=== PATIENT | female | born 1985 | race Caucasian/White ===

== ENCOUNTER 2016-04-13 14:31 | Outpatient (CLI) | payer SELFPAY ==
[~2016-04-13] VITALS: Ht 154.9 cm; Wt 62.9 kg
[~2016-04-13 14:31] MED LIST: ACET500C5 PO; CEPH-443 PO; IBUP-1542 PO
[2016-04-13 14:43] VITALS: BP 120/57; PULSE 84; RESP 17
[2016-04-13] MEDS ORDERED: PRENAT PO (14:46)
[2016-04-13] MEDS ORDERED: FOL8 PO (14:46)
[2016-04-13 14:57] LABS: URINE BLOOD (Dip) POC Trace-intact (NEGATIVE)
[2016-04-13 15:36] LABS: ADD UMIC YES; URINE BILIRUBIN (Dip) NEGATIVE (NEGATIVE); URINE BLOOD (Dip) NEGATIVE (NEGATIVE); URINE COLOR LT. YELLOW (YELLOW); URINE GLUCOSE (Dip) NEGATIVE (NEGATIVE); URINE KETONES (Dip) TRACE (NEGATIVE); URINE LEUKOCYTE ESTERASE (Dip) 2+ (NEGATIVE); URINE NITRITE (Dip) NEGATIVE (NEGATIVE); URINE TOTAL PROTEIN (Dip) TRACE (NEGATIVE); URINE UROBILINOGEN (Dip) 1.0 E.U./dL (0.1-1.0)
[2016-04-13 16:15] LABS: URINE RBCS 0-2 /HPF (0)
[2016-04-13 16:16] LABS: BACTERIA,URINE FEW; SQUAMOUS EPITHELIAL CELL,UR FEW
--- NOTE | 2016-04-13 16:16 | RADRPT ---
PROCEDURE: US cervix CLINICAL INDICATION: labor TECHNIQUE: Limited OB ultrasound was performed to evaluate the cervix COMPARISON: No prior studies are available for comparison. FINDINGS: There is a single live intrauterine . Normal cardiac activity is identified at a rat e of 156 beats per minute. presentation is transverse head to the maternal left. This is new is anterior grade 0. There is no evidence of placenta previa or abruption. The cervix is closed and measures 3.6 cm. There is no evidence of funneling or dilatation. IMPRESSION: The cervix is closed and measures 3.6 cm in length RPTAT: HH .Ricky Basilio MD, MD Date Time Electronically viewed and signed by .Ricky Basilio MD, on 04/13/2016 16:16 .W/
--- NOTE | 2016-04-13 16:30 | QN ---
Documentation Comment co of uti sypmtoms vss exam wnl ap iup 32 weeks uti false laboe macrobd dc home ERNIE LEDEZMA MD Apr 13, 2016 16:30
--- NOTE | 2016-04-13 16:45 | TRIAGE ---
OB Triage Datetime Report Generated by CPN: 04/13/2016 16:44 Datetime: 04/13/2016 16:29 Labor Evaluation Frequency: 0 Pattern: Normal: <= 5 Contractions in 10 Minutes Resting Tone [place]: Relaxed Datetime: 04/13/2016 15:12 Labor Evaluation Frequency: 0 Monitor Mode: External Pattern: Normal: <= 5 Contractions in 10 Minutes Resting Tone [place]: Relaxed Heart Rate FHR Baseline Rate: 135 FHR Baseline Changes: No Baseline Change Variability: Moderate 6-25 bpm Accelerations: 15X15 Decelerations: None Category: Category I Datetime: 04/13/2016 14:39 Time of Arrival: 04/13/2016 14:20 EGA: 31.0 Arrived By: Wheelchair Arrived From: Emergency Dept Chief Complaint: LOWER ABDOMINAL PRESSURE AND CTX FROM 1400 Movement: Present Contractions: Occasional Time Contractions Began: 04/13/2016 14:00 Rupture of Membranes: Denies Vaginal Bleeding: None Vaginal Discharge: Denies Recent Sexual Intercouse: Denies Abdominal Trauma: Not Applicable Patient Complaints: Contractions; Other Additional Patient Complaints: PT REPORTS PAIN WITH URINATING; URINE GARRETT AND CLOUDY. Time Provider Notified: 04/13/2016 14:58 Provider Notified: DR. LEDEZMA Initial Plan: EFM x2, UA, CERVICAL LENGTH Datetime: 04/13/2016 14:38 Stage of : OB Triage Assessment Type: Triage Maternal Assessment Level of Consciousness: Fully Conscious Headache: Denies Blurred Vision: No Respiratory Effort: Unlabored; Regular Rhythm; Equal Expansion Breath Sounds, Left: Clear and Equal Breath Sounds, Right: Clear and Equal Nausea/Vomiting: Denies RUQ Epigastric Pain: Denies Lower Extremities Edema: None Degree: None Upper Extremities Edema: None Degree: None Facial Edema: None Fall Risk Assessment History of Falling: (0) No Secondary Diagnosis: (0) No Ambulatory Aid: (0) Bedrest/Nurse Assist IV Therapy: (0) No Gait: (0) Normal/Bedrest/Immobile Mental Status: (0) Oriented to Own Ability Fall Score: 0 Fall Risk Score Definition: No Risk: No action required
== END 2016-04-13 16:40 | disposition home or self-care (01) ==
LOC: OBT 14:31 → L-D 14:32 → OBT 16:40
PROVIDERS: ATTEND Obstetrics & Gynecology
DX: O23.43 Unspecified infection of urinary tract in pregnancy, third trimester (principal); O47.03 False labor before 37 completed weeks of gestation, third trimester; Z3A.32 32 weeks gestation of pregnancy
CPT/HCPCS: 76817; 81001; 87086; G0463; 81003

== ENCOUNTER 2018-02-16 03:15 | Emergency (ER) | payer SELFPAY ==
[~2018-02-16] VITALS: Wt 62.4 kg
[~2018-02-16 03:15] MED LIST changes: -ACET500C5 PO; -CEPH-443 PO; +FOL8 PO; -IBUP-1542 PO; +PRENAT PO
[2018-02-16] MEDS ORDERED: ONDANSETRON (ODT) 4 MG TAB ODT STA (03:42)
[2018-02-16] MEDS ORDERED: KETOROLAC 30 MG INJ IM STA (03:42)
[2018-02-16] MEDS ORDERED: BISM-34 PO (04:48)
[2018-02-16] MEDS ORDERED: TYL500 PO (04:48)
[2018-02-16] MEDS ORDERED: ONDA4TAB14 PO (04:48)
[2018-02-16] MEDS ORDERED: D-ME118S24 PO (04:48)
[2018-02-16 04:56] VITALS: PULSE 71; RESP 20
--- NOTE | 2018-02-16 05:16 | ERD ---
ER Documentation Chief Complaint Chief Complaint AP, COUGH, VOMIT X'S 2 DAYS HPI 32-year-old female presents for vomiting and diarrhea, abdominal pain times 5 days. States symptoms have been getting worse for the past 2 days. She d escribes the diarrhea as watery. There is no bright red blood or dark stools noted. She states that they have abdominal pain is diffuse. She rates the pain 6 out of 10. She also admits to some cough that she states is nonproductive. Denies fevers or chills. Denies chest pain or shortness of breath. ROS All systems reviewed and are negative except as per history of present illness. Medications Home Meds Active Scripts Bismuth Subsalicylate* (Bismuth Subsalicylate*) 262 Mg/15 Ml Oral.susp, 15 ML PO Q6 PRN for DIARRHEA, #1 BOTTLE Prov:SHERICE TAYLOR 02/16/18 Ondansetron (Ondansetron Odt) 4 Mg Tab.rapdis, 4 MG PO Q6H PRN for NAUSEA AND/OR VOMITING, #15 TAB Prov:SHERICE TAYLOR 02/16/18 Acetaminophen* (Tylenol*) 500 Mg Tab, 500 MG PO Q4H PRN for MILD PAIN LEVEL 1-3, #30 TAB Prov:SHERICE TAYLOR 02/16/18 D-Methorphan Hb/P-Epd HCl/Bpm (Wgwzshivvr-Vkrcgryjggh-Cm Syr) 118 Ml Syrup, 5 ML PO Q4H PRN for COUGH, #1 BOTTLE Prov:SHERICE TAYLOR DO 02/16/18 Reported Medications Folic Acid* (Folic Acid*) 0.8 Mg Tablet, 0.8 MG PO DAILY, TAB 04/13/16 Multivit/Min/Fol Ac/Iron/Pren* ( S*) 1 Tab Tab, 1 TAB PO DAILY, TAB 04/13/16 Allergies Allergies: Coded Allergies: No Known Allergy (Unverified , 03/17/15) PMhx/Soc History of Surgery: Yes ( X 4) Anesthesia Reaction: No Hx Neurological Disorder: No Hx Respiratory Disorders: No Hx Cardiac Disorders: No Hx Psychiatric Problems: No Hx Miscellaneous Medical Probl: No Hx Alcohol Use: No Hx Substance Use: No Hx Tobacco Use: No Smoking Status: Never smoker Physical Exam Vitals Vital Signs Date Temp Pulse Resp B/P (MAP) Pulse Ox O2 O2 Flow FiO2 Time Delivery Rate 02/16/18 98.8 71 20 98 Room Air 04:56 02/16/18 97.1 73 18 116/66 98 03:17 (83) Physical Exam Const: No acute distress Head: Atraumatic Eyes: Normal Conjunctiva ENT: Normal External Ears, Nose and Mouth. Neck: Full range of motion. No meningismus. Resp: Clear to auscultation bilaterally Cardio: Regular rate and rhythm, no murmurs Abd: Soft, mild diffuse tender to palpation, non distended. Normal bowel sounds, no McBurney's point tenderness, no Montalvo sign, no rebound or guarding noted. Skin: No petechiae or rashes Back: No midline or flank tenderness Ext: No cyanosis, or edema Neur: Awake and alert Psych: Normal Mood and Affect Result Diagram: 02/16/180 02/16/18399 Results 24 hrs Laboratory Tests Test 02/16/18 04:00 02/16/18 04:12 White Blood Count 6.4 10^3/ul Red Blood Count 3.99 10^6/ul Hemoglobin 11.8 g/dl Hematocrit 36.1 % Mean Corpuscular Volume 90.5 fl Mean Corpuscular Hemoglobin 29.6 pg Mean Corpuscular Hemoglobin Concent 32.7 g/dl Red Cell Distribution Width 13.3 % Platelet Count 302 10^3/UL Mean Platelet Volume 10.5 fl Immature Granulocytes % 0.500 % Neutrophils % 48.6 % Lymphocytes % 37.1 % Monocytes % 8.8 % Eosinophils % 4.5 % Basophils % 0.5 % Nucleated Red Blood Cells % 0.0 /100WBC Immature Granulocytes # 0.030 10^3/ul Neutrophils # 3.1 10^3/ul Lymphocytes # 2.4 10^3/ul Monocytes # 0.6 10^3/ul Eosinophils # 0.3 10^3/ul Basophils # 0.0 10^3/ul Nucleated Red Blood Cells # 0.0 10^3/ul Urine Color YELLOW Urine Clarity SLIGHTLY CLOUDY Urine pH 5.0 Urine Specific [place] 1.023 Urine Ketones 1+ mg/dL Urine Nitrite POSITIVE mg/dL Urine Bilirubin NEGATIVE mg/dL Urine Urobilinogen 1+ mg/dL Urine Leukocyte Esterase TRACE Damaso/ul Urine Microscopic RBC 12 /HPF Urine Microscopic WBC 3 /HPF Urine Squamous Epithelial Cells FEW /HPF Urine Bacteria FEW /HPF Urine Mucus FEW /HPF Urine Hemoglobin 2+ mg/dL Urine Glucose NEGATIVE mg/dL Urine Total Protein 1+ mg/dl Sodium Level 140 mmol/L Potassium Level 3.6 mmol/L Chloride Level 104 mmol/L Carbon Dioxide Level 28 mmol/L Anion Gap 8 Blood Urea Nitrogen 11 mg/dl Creatinine 0.52 mg/dl Est Glomerular Filtrat Rate mL/min > 60 mL/min Glucose Level 102 mg/dl Calcium Level 9.0 mg/dl Total Bilirubin 1.0 mg/dl Direct Bilirubin 0.00 mg/dl Indirect Bilirubin 1.0 mg/dl Aspartate Amino Transf (AST/SGOT) 23 IU/L Alanine Aminotransferase (ALT/SGPT) 24 IU/L Alkaline Phosphatase 114 IU/L Total Protein 7.7 g/dl Albumin 4.2 g/dl Globulin 3.50 g/dl Albumin/Globulin Ratio 1.20 Lipase 42 U/L POC Beta HCG, Qualitative NEGATIVE Current Medications Medications Dose Sig/Haley Start Time Status Last (Trade) Ordered Route PRN Stop Time Admin Dose Reason Admin Ketorolac 30 mg ONCE STAT 02/16/18 DC 02/16/18 Tromethamine IM 03:42 02/16/18 04:15 (Toradol) 03:43 Ondansetron 4 mg ONCE STAT 02/16/18 DC 02/16/18 HCl (Zofran ODT 03:42 02/16/18 04:05 Odt) 03:43 Procedures/MDM Medical Decision Making: Differential diagnosis includes but not limited to acute gastroenteritis, appendicitis, cholecystitis, pancreatitis. Patient appeared well on physical exam. Nontoxic appearing. There was mild diffuse tenderness to palpation. Low suspicion for surgical abdomen. Labs: CBC showed mild anemia, no elevated WBC to suggest infection CMP showed no electrolyte abnormalities, there was normal kidney and liver function Lipase was normal Urine was negative UA was negative for infection, there is a large amount of RBCs were patient is currently on her menstrual period Patient likely has acute gastroenteritis likely viral., ED course: Patient was given Zofran and Toradol. Symptoms improved with treatment. Prescription(s): Patient given prescription for bismuth, Zofran, Tylenol, Bromfed. Patient advised to follow up with PCP in 1-2 days. Patient advised to return to ED for new or worsening symptoms. Patient stable on discharge from the ED. Disclaimer: Inadvertent spelling and grammatical errors are likely due to EHR/dictation software use and do not reflect on the overall quality of patient care. Also, please note that the electronic time recorded on this note does not necessarily reflect the actual time of the patient encounter. Departure Diagnosis: Primary Impression: Viral gastroenteritis Additional Impression: Cough Condition: Fair Patient Instructions: Gastroenteritis, Viral (6Y-Adult) Referrals: [facility] YOU HAVE RECEIVED A MEDICAL SCREENING EXAM AND THE RESULTS INDICATE THAT YOU DO NOT HAVE A CONDITION THAT REQUIRES URGENT TREATMENT IN THE EMERGENCY DEPARTMENT. FURTHER EVALUATION AND TREATMENT OF YOUR CONDITION CAN WAIT UNTIL YOU ARE SEEN IN YOUR DOCTORS OFFICE WITHIN THE NEXT 1-2 DAYS. IT IS YOUR RESPONSIBILITY TO MAKE AN APPOINTMENT FOR FOLOW-UP CARE. IF YOU HAVE A PRIMARY DOCTOR --you should call your primary doctor and schedule an appointment IF YOU DO NOT HAVE A PRIMARY DOCTOR YOU CAN CALL OUR PHYSICIAN REFERRAL HOTLINE AT IF YOU CAN NOT AFFORD TO SEE A PHYSICIAN YOU CAN CHOSE FROM THE FOLLOWING [facility] [address] [facility] [address] [facility] [facility] [address] [facility] [address] [facility] [address] [facility]. [facility]. [address] Additional Instructions: Llame al doctor MAANA y monalisa anjali MALIK PARA DENTRO DE 1-2 MALHOTRA.Dgale a la secretaria que nosotros le instruimos hacer esta malik.Avise o llame si morley condicin se empeora antes de la malik. Regresa aqui si peor o no mejor. SHERICE TAYLOR DO Feb 16, 2018 05:16
== END 2018-02-16 04:55 | disposition home or self-care (01) ==
LOC: FTE 03:15
DX: A08.4 Viral intestinal infection, unspecified (principal); R05 Cough
CPT/HCPCS: 36415; 80053; 81001; 81025; 83690; 85025; 96372; 99284; J1885

== ENCOUNTER 2018-07-02 13:47 | Emergency (ER) | payer MEDICAID ==
[~2018-07-02] VITALS: Ht 167.6 cm; Wt 64.7 kg
[~2018-07-02 13:47] MED LIST changes: +BISM-34 PO; +CYCL10TA7 PO; +D-ME118S24 PO; +IBUP-1542 PO; +ONDA4TAB14 PO; +TYL500 PO
[2018-07-02 13:55] VITALS: Ht 167.6 cm; Wt 64.7 kg
--- NOTE | 2018-07-02 15:06 | ERD ---
ER Documentation Chief Complaint Chief Complaint Complains of dizzines, and headache with vomiting x 4 days HPI 32-year-old female, presents to the emergency department, complaining of 4 days with dizziness, headache and vomiting. The patient describes the sensation as things spinning around. Symptoms are worsened by sudden changes in position or rapid rotation of the head. ROS All systems reviewed and are negative except as per history of present illness. Medications Home Meds Active Scripts Ondansetron Hcl* (Zofran*) 4 Mg Tablet, 4 MG PO Q8H PRN for NAUSEA AND/OR VOM ITING, #12 TAB Prov:SAMEER HARRELL MD 07/02/18 Meclizine Hcl* (Antivert*) 12.5 Mg Tab, 12.5 MG PO Q6H PRN for DIZZINESS, #20 TAB Prov:SAMEER HARRELL MD 07/02/18 Cyclobenzaprine Hcl* (Cyclobenzaprine Hcl*) 10 Mg Tablet, 10 MG PO TID PRN for MUSCLE SPASMS, #20 TAB Prov:AMBROSE HARRIS 03/07/18 Ibuprofen* (Motrin*) 600 Mg Tab, 600 MG PO Q6H PRN for PAIN AND OR ELEVATED TEMP, #30 TAB Prov:AMBROSE HARRIS 03/07/18 Bismuth Subsalicylate* (Bismuth Subsalicylate*) 262 Mg/15 Ml Oral.susp, 15 ML PO Q6 PRN for DIARRHEA, #1 BOTTLE Prov:SHERICE TAYLOR DO 02/16/18 Ondansetron (Ondansetron Odt) 4 Mg Tab.rapdis, 4 MG PO Q6H PRN for NAUSEA AND/OR VOMITING, #15 TAB Prov:SHERICE TAYLOR DO 02/16/18 Acetaminophen* (Tylenol*) 500 Mg Tab, 500 MG PO Q4H PRN for MILD PAIN LEVEL 1-3, #30 TAB Prov:SHERICE TAYLOR DO 02/16/18 D-Methorphan Hb/P-Epd HCl/Bpm (Nlcsjoprpu-Vbeontutwke-Dg Syr) 118 Ml Syrup, 5 ML PO Q4H PRN for COUGH, #1 BOTTLE Prov:SHERICE TAYLOR DO 02/16/18 Reported Medications Folic Acid* (Folic Acid*) 0.8 Mg Tablet, 0.8 MG PO DAILY, TAB 04/13/16 Multivit/Min/Fol Ac/Iron/Pren* ( S*) 1 Tab Tab, 1 TAB PO DAILY, TAB 04/13/16 Allergies Allergies: Coded Allergies: No Known Allergy (Unverified , 03/17/15) PMhx/Soc History of Surgery: Yes ( X 4) Anesthesia Reaction: No Hx Neurological Disorder: No Hx Respiratory Disorders: No Hx Cardiac Disorders: No Hx Psychiatric Problems: No Hx Miscellaneous Medical Probl: Yes (pre-DM) Hx Alcohol Use: No Hx Substance Use: No Hx Tobacco Use: No Smoking Status: Never smoker FmHx Family History: No diabetes, No coronary disease Physical Exam Vitals Vital Signs Date Temp Pulse Resp B/P (MAP) Pulse Ox O2 O2 Flow FiO2 Time Delivery Rate 07/02/18 99.0 72 20 116/72 97 13:55 (87) Physical Exam Patient is in no acute distress, vital signs stable. Alert and fully oriented. HEENT: PERRLA, EOMI, Sclera and conjunctiva appear normal, Canals clear, t ympanic membranes WNL. THROAT: Normal oropharynx. NECK: Supple, No lymphadenopathy. Full ROM without pain or tenderness. HEART: RRR, no rubs, murmurs, clicks or gallops. LUNGS: Clear to auscultation. ABDOMEN: Soft, non-tender without masses or hepatosplenomegaly. EXTREMITIES: No edema bilaterally. BACK: Full ROM, no deformity, normal back exam NEURO: Cranial nerves grossly intact, no motor or sensory deficit. Mild horizontal nystagmus while the patient was looking straight ahead with mildly a bnormal head impulse test. Result Diagram: 07/02/18 1536 07/02/18 1536 Results 24 hrs Laboratory Tests Test 07/02/18 15:36 07/02/18 15:39 07/02/18 15:40 White Blood Count 7.1 10^3/ul Red Blood Count 4.33 10^6/ul Hemoglobin 12.8 g/dl Hematocrit 39.4 % Mean Corpuscular Volume 91.0 fl Mean Corpuscular Hemoglobin 29.6 pg Mean Corpuscular 32.5 g/dl Hemoglobin Concent Red Cell Distribution Width 13.6 % Platelet Count 289 10^3/UL Mean Platelet Volume 10.1 fl Immature Granulocytes % 0.100 % Neutrophils % 49.1 % Lymphocytes % 41.1 % Monocytes % 7.9 % Eosinophils % 1.5 % Basophils % 0.3 % Nucleated Red Blood Cells % 0.0 /100WBC Immature Granulocytes # 0.010 10^3/ul Neutrophils # 3.5 10^3/ul Lymphocytes # 2.9 10^3/ul Monocytes # 0.6 10^3/ul Eosinophils # 0.1 10^3/ul Basophils # 0.0 10^3/ul Nucleated Red Blood Cells # 0.0 10^3/ul Sodium Level 141 mmol/L Potassium Level 3.9 mmol/L Chloride Level 106 mmol/L Carbon Dioxide Level 26 mmol/L Anion Gap 9 Blood Urea Nitrogen 19 mg/dl Creatinine 0.72 mg/dl Est Glomerular Filtrat Rate mL/min > 60 mL/min Glucose Level 93 mg/dl Calcium Level 9.2 mg/dl POC Beta HCG, Qualitative NEGATIVE Bedside Urine pH (LAB) 7.0 Bedside Urine Protein (LAB) Negative Bedside Urine Glucose (UA) Negative Bedside Urine Ketones (LAB) Trace Bedside Urine Blood Trace-intact Bedside Urine Nitrite (LAB) Negative Bedside Urine Leukocyte Esterase Negative (L EKG read by me: Rate/Rhythm: Regular rate and rhythm at a rate of 69 Intervals: Normal No acute ST changes. No T wave inversion Impression: No evidence of acute ischemia or arrhythmia Procedures/MDM Vital signs stable, neurovascular exam revealed horizontal nystagmus while the patient was looking straight ahead with mildly abnormal head impulse test. Differential diagnosis include but not limited to dehydration, cardiac arrhy thmia, , Mnire's disease, vestibular neuronitis, migraine, vertigo, side effects of the medications, hypoglycemia. Less likely but is still a possibility, intracranial hemorrhage, ischemic stroke, CREEL CLERK neoplasm. Pertinent Data: 12 Lead ECG: Sinus rhythm, no ST changes, normal T wave, normal intervals Labs: CBC: normal, BMP: normal kidney function, normal electrolytes. Glucose: normal Urine : Negative. Physical examination and clinical presentation consistent most likely with positional vertigo During the ED course the patient remained stable, no new complaints. Results and clinical impression discussed with patient who agrees with management. The patient is stable to be treated outpatient and will be discharged home with instructions to follow up with the primary care provider in the next 48h. If symptoms persist, worsen or new symptoms develop, then patient should return to the ED immediately. Instructions explained and given directly by me to the patient with acknowledgment and demonstrated understanding. Disclaimer: Inadvertent spelling and grammatical errors are likely due to EHR/dictation software use and do not reflect on the overall quality of patient care. Also, please note that the electronic time recorded on this note does not necessarily reflect the actual time of the patient encounter. Departure Diagnosis: Primary Impression: Positional vertigo Condition: Stable Patient Instructions: Vertigo, Unspecified Additional Instructions: Muchas lupe por [facility] para morley servicio. Esperamos que en morley visita a la kali de emergencia morley problema medico haya sido solucionado y que se sienta mucho mejor. Para estar seguros que morley mejoria sigue en proceso, le pedimos el favor de hacer anjali korey de seguimiento medico con morley doctor primario en los proximos 2-4 lewis. Lleve con usted estos documentos y las medicinas recetadas. Si francisco sintomas empeoran, NO SE ESPERE, por favor regrese a kali de emergencia INMEDIATAMENTE. En jeri que usted no tenga un mdico de atencin primaria: Llame al mdico o clnica comunitaria de referencia que aparece abajo delia las horas de consultorio para hacer anjali korey para que le vean. CLINICAS: [facility] [phone] [facility] [phone] [address] [facility] [phone] [facility] [phone] [address] [place] [id number] [phone] [facility]. [phone] MD July 02, 2018 15:06
[2018-07-02] MEDS ORDERED: MECL12.574 PO (16:20)
[2018-07-02] MEDS ORDERED: ONDA4TAB8 PO (16:20)
[2018-07-02 16:48] VITALS: BP 111/65; PULSE 65; RESP 18
== END 2018-07-02 16:50 | disposition home or self-care (01) ==
LOC: FTE 13:47
DX: R42 Dizziness and giddiness (principal)
CPT/HCPCS: 80048; 81003; 81025; 85025; 93005; Z7502

== ENCOUNTER 2018-10-17 01:09 | Emergency (ER) | payer MEDICAID ==
[~2018-10-17] VITALS: Ht 170.2 cm; Wt 65.9 kg
[~2018-10-17 01:09] MED LIST changes: +ACET500C5 PO; +MECL12.574 PO; +ONDA4TAB8 PO
[2018-10-17 01:11] VITALS: Ht 170.2 cm; Wt 65.9 kg
[2018-10-17] MEDS ORDERED: ACETAMINOPHEN 325 MG TAB PO ONE (03:30)
[2018-10-17 05:02] VITALS: BP 108/74; PULSE 71; RESP 18
== END 2018-10-17 05:03 | disposition home or self-care (01) ==
LOC: FTE 01:09
DX: N93.9 Abnormal uterine and vaginal bleeding, unspecified (principal)
CPT/HCPCS: 36415; 84703; 85025; Z7502; Z7610; 99284